=== PATIENT | female | born 1940 | race African-American/Black ===

== ENCOUNTER → 2019-07-19 | Outpatient (CLI) | payer MEDICARE ==
[~2019-07-19] MED LIST: ATEN25TA PO; BRIM5DRO2 EACHEYE; CHOL100014 PO; HYDR25TA6 PO; LACT1CAP37 PO; LATA2.5D3 EACHEYE; NIFE60TA15 PO; POTASSIUM CITRATE PO; PRAV20TA2 PO
== END | disposition home or self-care (01) ==
LOC: CFH 10:24
PROVIDERS: ATTEND Physician Assistant Medical
DX: Z13.820 Encounter for screening for osteoporosis (principal); N95.8 Other specified menopausal and perimenopausal disorders
CPT/HCPCS: 77080

== ENCOUNTER → 2020-04-14 | Outpatient (CLI) | payer MEDICARE ==
[~2020-04-14] MED LIST changes: +NIFE-6 PO; -NIFE60TA15 PO
== END | disposition home or self-care (01) ==
LOC: CFH 09:06
PROVIDERS: ATTEND Family Medicine
DX: R10.84 Generalized abdominal pain (principal); Z90.49 Acquired absence of other specified parts of digestive tract
CPT/HCPCS: 74021

== ENCOUNTER 2020-05-07 10:06 | Emergency (ER) | payer MEDICARE ==
[~2020-05-07] VITALS: Ht 165.1 cm; Wt 82.0 kg
[2020-05-07] MEDS ORDERED: OXYcodone/APAP 5/325MG TABLET PO ONE (10:30)
--- NOTE | 2020-05-07 10:44 | NUR ---
pt to rad. as
[2020-05-07] MEDS ORDERED: OXYcodone/APAP 5/325MG TABLET ONE (11:05)
[2020-05-07 12:06] VITALS: BP 179/99
--- NOTE | 2020-05-07 12:10 | NUR ---
ERP WAS IN FOR RECHECK. PT VERBALIZES SOME PAIN RELIEF AFTER PERCOCET. D/C INSTRUCTIONS, MEDS & F/U APPT RV'WD WITH PT, SHE VERBALIZES UNDERSTANDING. RX GIVEN X1. ASSISTED PT OUT OF ED VIA WC, PT STATES HER WILL [employer] HER HOME.
== END 2020-05-07 12:09 | disposition home or self-care (01) ==
LOC: ED 11:03
DX: S76.111A Strain of right quadriceps muscle, fascia and tendon, initial encounter (principal); M54.16 Radiculopathy, lumbar region; I10 Essential (primary) hypertension; W01.0XXA Fall on same level from slipping, tripping and stumbling without subsequent striking against object, initial encounter; Y93.89 Activity, other specified; Y92.009 Unspecified place in unspecified non-institutional (private) residence as the place of occurrence of the external cause; Y99.8 Other external cause status
CPT/HCPCS: 72190; 99284

== ENCOUNTER → 2020-06-21 | Outpatient (CLI) | payer MEDICARE ==
[~2020-06-21] MED LIST changes: -LATA2.5D3 EACHEYE; +LATA2.5D4 EACHEYE; +REGADENOSON 0.4 MG/5 ML SYRINGE ONE
== END | disposition home or self-care (01) ==
LOC: CFH 10:43
PROVIDERS: ATTEND Internal Medicine Cardiovascular Disease
DX: I11.9 Hypertensive heart disease without heart failure (principal); R06.02 Shortness of breath
CPT/HCPCS: 78452; 93017; 93306; A9502; J2785